=== PATIENT | male | born 1965 ===

== ENCOUNTER 2018-02-22 16:42 | Inpatient (IN) | payer MEDICAID ==
[2018-02-22 16:42] VITALS: BMI 27.8
[2018-02-22 18:26] LABS: HEMOGLOBIN 12.9 g/dL (12.0-18.0); MEAN CELL VOLUME 84.6 fL (80.0-94.0); MEAN CORPUSCULAR HEMOGLOBIN 28.1 pg (27.0-31.0); MEAN CORPUSCULAR HGB CONC 33.2 g/dL (33.0-37.0); MEAN PLATELET VOLUME 7.5 fL (7.2-11.7); RBC 4.59 Mil/uL (4.40-5.90); RED CELL DISTRIBUTION WIDTH 13.7 % (11.5-14.5); WHITE BLOOD COUNT 5.5 K/uL (4.8-10.8)
[2018-02-22 18:35] LABS: URINE BILIRUBIN NEGATIVE (NEGATIVE); URINE BLOOD NEGATIVE (NEGATIVE); URINE CLARITY Clear (Clear); URINE COLOR Yellow (YELLOW); URINE GLUCOSE (UA) NORMAL (Normal); URINE LEUKOCYTE ESTERASE NEG Leu/uL (Negative); URINE PROTEIN NEGATIVE (NEGATIVE); URINE UROBILINOGEN NORMAL mg/dL (0.2-1.0)
[2018-02-22 18:39] LABS: ALB/GLOB RATIO 1.3 (1.0-2.1); ALBUMIN 4.5 g/dL (3.5-5.0); ALT/SGPT 12 U/L (21-72); AST/SGOT 15 U/L (17-59); BLOOD UREA NITROGEN 16 mg/dL (9-20); CALCIUM 9.5 mg/dl (8.6-10.4); GFR NON-AFRICAN AMERICAN > 60
[2018-02-22 18:44] LABS: BARBITURATES, UR NEGATIVE (NEGATIVE); BENZODIAZEPINES, UR NEGATIVE (NEGATIVE)
[2018-02-22 18:54] LABS: OPIATES, UR POSITIVE (NEGATIVE); PHENCYCLIDINE, UR POSITIVE (NEGATIVE)
--- NOTE | 2018-02-22 19:34 | C.PDOC ---
History Of Present Illness 52 year old male presents to the ED requesting detox from heroin abuse. Patient was prescreened, patient reports feeling nausea, body aches. Patient states his last used was this morning at 07:00. Patient denies any other drug use, SI/HI, hallucinations, other complaints. Time Seen by Provider: 02/22/18 19:07 Chief Complaint (Nursing): Substance Abuse History Per: Patient History/Exam Limitations: no limitations Onset/Duration Of Symptoms: Hrs Current Symptoms Are (Timing): Still Present Suicide/Self Injury Attempted (Context): None Modifying Factor(s): Other (Heroin) Associated Symptoms: denies: Depression, Suicidal Thoughts, Suicidal Plan Recent travel outside of the [place] States: No Additional History Per: Patient, EMS Past Medical History Reviewed: Historical Data, Nursing Documentation, Vital Signs Vital Signs: Last Vital Signs Temp 98.7 F 02/22/18 17:18 Pulse 68 02/22/18 17:18 Resp 18 02/22/18 17:18 BP 169/70 H 02/22/18 17:18 Pulse Ox 100 02/22/18 17:18 - Medical History PMH: Anxiety, Depression, HTN Denies: Chronic Kidney Disease Surgical History: [facility]olecyst[facility] - [facility] INJECT/INFUSE NEC (05/26/12) PSYCHIAT DRUG THERAP NEC (05/27/12) Family History: States: Unknown Family Hx - Social History Hx Tobacco Use: No Hx Alcohol Use: Yes (social beer) Hx Substance Use: Yes - Immunization History Hx Tetanus Toxoid Vaccination: No Hx Influenza Vaccination: No Hx Pneumococcal Vaccination: No Review Of Systems Constitutional: Negative for: Fever, Chills Cardiovascular: Negative for: Chest Pain Respiratory: Negative for: Cough, Shortness of Breath Gastrointestinal: Positive for: Nausea Neurological: Negative for: Weakness, Numbness Psych: Positive for: Withdrawal. Negative for: Depression, Suicidal ideation Physical Exam - Physical Exam Appears: Non-toxic, No Acute Distress Skin: Normal Color, Warm, Dry Head: Atraumatic, Normacephalic Eye(s): bilateral: Normal Inspection Neck: Normal ROM, Supple Chest: Symmetrical Cardiovascular: Rhythm Regular Respiratory: Normal Breath Sounds, No Rales, No Rhonchi, No Wheezing Gastrointestinal/Abdominal: Soft, No Tenderness, No Guarding, No Rebound Extremity: Normal ROM, No Tenderness, No Swelling Neurological/Psych: Oriented x3, Normal Speech, Normal Cognition Gait: Steady ED Course And Treatment - Laboratory Results Result Diagrams: 02/22/18 18:22 02/22/18 18:22 O2 Sat by Pulse Oximetry: 100 (ON RA) Pulse Ox Interpretation: Normal Reevaluation Time: 19:34 Reassessment Condition: Unchanged (MED CLEAR FOR DETOX. CRISIS NOTIFIED) Medical Decision Making Medical Decision Making: Plan: * Labs * UA * Toradol 60 mg IM * Zofran 4 mg PO * Catapres 1 patch Disposition Discussed With : Bernarda Ortega Counseled Patient/Family Regarding: Studies Performed, Diagnosis - Disposition Disposition: HOSPITALIZED Disposition Time: 20:02 Condition: STABLE Forms: [facility] (Greenlandic) - POA Present On Arrival: None - Clinical Impression Clinical Impression: Opiate abuse, continuous - Scribe Statement The provider has reviewed the documentation as recorded by the Scribe Fernando Solano All medical record entries made by the Scribe were at my direction and personally dictated by me. I have reviewed the chart and agree that the record accurately reflects my personal performance of the history, physical exam, medical decision making, and the department course for this patient. I have also personally directed, reviewed, and agree with the discharge instructions and disposition.
--- NOTE | 2018-02-22 20:30 | PCM.BM ---
Treatment Plan Problems - Problems identified on initial assessmt potential for opiate withdrawal Date Initiated: 02/22/18 Time Initiated: 20:29 Status: Active Treatment assets and liabiliti Patient Assests: cooperative, cognitively intact Patient Liabilities: substance abuse - Milieu Protocol Maintain good personal hygiene: daily Encourage regular showers, daily Remind patient to perform daily oral care, daily Assist patient to perform ADL's Conduct patient checks and document Observation sheet: Q15 minutes Maintain personal safety: every shift Educate patient to report safety concerns to staff, every shift Monitor environment for contraband/sharps Medication safety: Monitor for expected outcome, potential side effects: every shift, Assess barriers to learning: every shift, Assess readiness for medication education: every shift
[2018-02-23] MEDS ORDERED: Aluminum Hydroxide/Magnesium Hydroxide Susp (30 mL) PO PRN (16:35)
--- NOTE | 2018-02-23 18:00 | PCM.PSYCH ---
Initial Psychiatric Evaluation - Initial Psychiatric Evaluation Type of Admission: Voluntary Legal Status: Capacity Chief Complaint (in patient's own words): I need help for my substance use. History of Present Illness and Precipitating Events: Patient is a 52 years old, single, unemployed, male with no previous psychiatric history was admitted due to withdrawing from heroin. Patient started using heroin at 33 years of age, increase gradually, currently he was using 15 bags of heroin daily, IV. His last use of heroin was yesterday, 7 bags. His longest period of abstinence was 3 years from 2012 2015. He relapsed in 2015. Patient denied any previous detox or rehabs. In the past patient was also in detention house through longterm. In the past [facility]. He relapsed in December 2017. He was attending this program for last 2 years. In December he was discharged from the program with condition of coming back in 90 days. Urine drug screen was also positive for PCP, patient denied use of any PCP. Patient has history of hypertension and history of cholecystectomy. In the past patient was arrested for selling drugs, not on probation. Patient was born in [place], moved to [place] at 4 years of age with family. Has ninth grade of education. Is not working since 2015. 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 He lives with parents. Never and has 2 grownup children. His height is 5 feet 11 inches and weight is 200 pounds. Current Medications: Active Medications Generic Name Dose Route Start Last Admin Trade Name Freq PRN Reason Stop Dose Admin Al Hydrox/Mg Hydrox/Simethicone 30 ml 02/23/18 16:35 Maalox 30 Ml PO TID PRN Indigestion / Heartburn Amlodipine Besylate 5 mg 02/23/18 17:00 Norvasc PO DAILY MAR Clonidine HCl 0.1 mg 02/22/18 22:23 02/23/18 09:03 Catapres PO 0.1 mg Q8H PRN Administration Withdrawal symptoms Dicyclomine HCl 20 mg 02/23/18 16:52 Bentyl PO Q6 PRN Abdominal Cramps Gabapentin 400 mg 02/23/18 18:00 Neurontin PO TID MAR Hydroxyzine HCl 25 mg 02/22/18 22:48 02/23/18 13:09 Atarax PO 25 mg Q6H PRN Administration Anxiety Ibuprofen 600 mg 02/23/18 16:51 Motrin Tab PO Q6 PRN Pain, moderate (4-7) Loperamide HCl 2 mg 02/23/18 16:35 Imodium PO Q8 PRN Diarrhea Methadone HCl 0 mg 02/24/18 10:00 Methadone PO 02/26/18 09:59 Q24H MAR Taper Ondansetron HCl 4 mg 02/23/18 16:35 Zofran Tab PO Q8 PRN Nausea/Vomiting Trazodone HCl 50 mg 02/22/18 22:47 02/22/18 22:55 Desyrel PO 50 mg HS PRN Administration Insomnia Past Psychiatric History - Past Psychiatric History Previous Treatment History: None History of Abuse: None reported History of ETOH/Drug Use: See HPI History of Family Illness: None reported Pertinent Medical Hx (Current Medical&Sleep Prob, Allergies): Allergies Allergy/AdvReac Type Severity Reaction Status Date / Time No Known Allergies Allergy Verified 02/22/18 17:21 No Known Home Med 02/22/18 Hypertension Review of Systems - Psychiatric Psychiatric: As Per HPI Mental Status Examination - Personal Presentation Personal Presentation: Looks stated age - Affect Affect: Other (Appropriate) - Motor Activity Motor Activity: Calm - Reliability in Providing Information Reliability in Providing Information: Fair - Speech Speech: Organized - Mood Mood: Anxious - Formal Thought Process Formal Thought Process: No Impairment Additional comments: None - Hallucinations/Delusions Hallucinations: Other (None reported) Delusions: Other - Obsessions/Compulsions Obsessions: None Compulsions: None - Cognitive Functions Orientation: Person, Place, Situation, Time Sensorium: Alert Attention/Concentration: Attentive Abstract Thinking: [place] Estimate of Intelligence: Average Judgement: Intact, as evidence by: Insight regarding need for hospitalization Memory: Recent intact, as evidence by: Ability to recall events of the day, Remote intact, as evidenced by: Ability to recall historical events - Risk Risk: Withdrawal, Diminished functioning - Strength & Assets Inventory Strength & Assets Inventory: Family support, Cooperative - Limitations Limitations: Other (Lives with parents ) DSM 5 DX - DSM 5 DSM 5 Diagnosis: Opioid use disorder severe Opioid withdrawal. - Recommended/Plan of Treatment Treatment Recommendations and Plan of Treatment: Patient/staff education. Supportive therapy. CBT for relapse prevention. [place] for abstinence. Will start methadone taper for opioid withdrawal symptoms. Other as needed medications. Patient wants to go back to [facility]. Projected ELOS: 4-5-day - Smoking Cessation Smoking Cessation Initiated: No Reason for not providing: Patient does not smoke cigarettes
--- NOTE | 2018-02-24 18:24 | PCM.PYCHPN ---
Psychiatric Progress Note - Psychiatric Progress Note Patient seen today, length of contact: 15 minutes Patient Chief Complaint: I am feeling better than before. Problems Identified/Issues Discussed: Patient seen, chart reviewed, case discussed with the staff. Issues related to illness and treatment were discussed with the patient and staff. Reported compliant with treatment with no adverse affects. Tolerating treatment very well. Patient reported feeling better. Staff also confirmed the above. Patient was calm and cooperative. Awake, alert and oriented 3. No psychomotor activity, good eye contact, memory intact. Aftercare discussed with the patient. Denied any delusions, auditory or visual hallucinations, suicidal ideations or homicidal ideations at the time of evaluation. Medical Problems: Hypertension Diagnostic Results: Reviewed DSM 5 Symptoms Update: Some improvement with treatment Medication Change: No Medical Record Reviewed: Yes Mental Status Examination - Cognitive Function Orientation: Person, Place, Situation, Time Memory: Intact Attention: WNL Concentration: WNL Association: WNL Fund of Knowledge: WN - Mood Mood: Anxious (Less than before) - Affect Affect: Other (Appropriate) - Speech Speech: Appropriate - Formal Thought Process Formal Thought Process: No Impairment Psychotic Thoughts and Behaviors: None - Suicidal Ideation Suicidal Ideation: No - Homicidal Ideation Homicidal Ideation: No Goal/Treatment Plan - Goal/Treatment Plan Need for Continued Stay: Remain at risks for inpatient hospitalization, Discharge may exacerbated symptoms, Severe functional impairment Progress Toward Problem(s) and Goals/Treatment Plan: Patient/staff education. Supportive therapy. CBT for relapse prevention. [facility] for abstinence. Continue treatment as before. Patient wants to go to [facility] treatment program for follow-up care after discharge from the hospital. Estimated Date of D/C: 02/26/18 - Smoking Cessation Smoking Cessation Initiated: No Reason for not providing: Patient does not smoke cigarettes.
[2018-02-24 21:11] VITALS: BP 138/88; PULSE 85; RESP 19; TEMP 97.6; O2SAT 100
== END 2018-02-25 07:55 | disposition home or self-care (01) | DRG 772 ==
LOC: C.ER 16:42 → C.7D 20:02
PROVIDERS: ADMIT Psychiatry & Neurology Psychiatry; ATTEND Psychiatry & Neurology Psychiatry
PROC: HZ81ZZZ Medication Management for Substance Abuse Treatment, Methadone Maintenance (ICD-10-PCS; principal; 2018-02-22)
PROC: HZ2ZZZZ Detoxification Services for Substance Abuse Treatment (ICD-10-PCS; 2018-02-22)
PROC: HZ56ZZZ Individual Psychotherapy for Substance Abuse Treatment, Psychoeducation (ICD-10-PCS; 2018-02-22)
DX: F11.23 Opioid dependence with withdrawal (principal); I10 Essential (primary) hypertension; Z90.49 Acquired absence of other specified parts of digestive tract